=== PATIENT | female | born 1960 | race Caucasian/White ===

== ENCOUNTER 2022-11-30 15:30 | Emergency (ER) | payer OTHER, SELFPAY ==
[2022-11-30 15:37] VITALS: BP 165/92; PULSE 56; RESP 16; TEMP 37.3; O2SAT 99
--- NOTE | 2022-11-30 15:39 | ED.EYEPROB ---
HPI - Eye Problem General Chief complaint: Eye Problems Stated complaint: Eye Problem Source: patient and RN notes reviewed History of Present Illness HPI Narrative: 62-year-old female presents to urgent care with complaints of a foreign body sensation to her left eye. States the symptoms started approximately 1 hour ago. Patient attempted washing her eye out at home and has been using Liquid Tears without relief. Denies any visual disturbance, fevers, chills, vomiting, or eye drainage. Related Data Home Medications Medication Instructions Recorded Confirmed lisinopril 40 mg tablet 40 mg PO DAILY 11/30/22 11/30/22 metoprolol succinate 25 mg 25 mg PO DAILY 11/30/22 11/30/22 tablet,extended release 24 hr omeprazole 20 mg tablet,delayed 20 mg PO BID 11/30/22 11/30/22 release ranolazine 1,000 mg 1,000 mg PO Q12H 11/30/22 11/30/22 tablet,extended release,12 hr sertraline 100 mg tablet 100 mg PO DAILY 11/30/22 11/30/22 Allergies Allergy/AdvReac Type Severity Reaction Status Date / Time Penicillins Allergy Unknown Rash Verified 11/30/22 15:51 [id number]-[id number]-[id number] Reductase Allergy Unknown Rash Verified 11/30/22 15:51 Inhibitor [Dzvfjvh-Whg-Ryv Reductase Inhibitor] Review of Systems Review of Systems: CONSTITUTIONAL: Denies fever, chills, or sweats. EYES: Reports foreign body sensation in left eye ENT: Denies otalgia and sore throat CARDIOVASCULAR: Denies chest pain, palpitations, or edema. RESPIRATORY: Denies cough or dyspnea. GASTROINTESTINAL: Denies abdominal pain, nausea, vomiting, or diarrhea. GENITOURINARY: Denies dysuria or hematuria. SKIN: Denies rash or itching. MUSCULOSKELETAL: Denies back pain, joint pain, or myalgia. NEUROLOGIC: Denies headache, numbness, or weakness. PMFSH Social History Social History Smoking status: Never smoker Alcohol intake: current Comments At the time of my signature, I reviewed and agree with the nursing past medical, surgical, social, and family history. There is no relevant family history pertinent to the patient complaint. Exam Narrative: GENERAL: This is a well-nourished, well-developed patient, in no apparent distress. HEAD: normocephalic, atraumatic. EYES: PERRL. Sclera clear/white. Vision is grossly intact. With sleep exam demonstrates no foreign body or corneal abrasion. Small chemosis noted to the 3 o'clock position of the left eye. EARS: External ears normal, auditory canals clear and without drainage, TMs normal without perforation. Hearing grossly intact. NOSE: External nose normal with no obvious nasal discharge, nares without redness, no rhinorrhea. THROAT: Mucous membranes moist, posterior pharynx clear. NECK: Neck supple, non-tender without lymphadenopathy, masses or thyromegaly. CARDIOVASCULAR: Regular rate and rhythm without murmurs, gallops, or rubs. RESPIRATORY: Clear to auscultation. Breath sounds equal bilaterally. No wheezes, rales, or rhonchi. GASTROINTESTINAL: Abdomen soft, non-tender, nondistended. Bowel sounds are active. No hepato-splenomegaly, or palpable masses. No guarding. SKIN: warm, intact with no suspicious lesions or rash, good texture and turgor. NEURO: awake, alert, and oriented to person, place and time. There were no obvious focal neurologic abnormalities. Course Course Level of Care: Express Care Visit Vital Signs Vital signs: Vital Signs Temperature 99.1 F 11/30/22 15:37 Pulse Rate 56 L 11/30/22 15:37 Respiratory Rate 16 11/30/22 15:37 Blood Pressure 165/92 H 11/30/22 15:37 Pulse Oximetry 99 11/30/22 15:37 Oxygen Delivery Room Air 11/30/22 15:37 Temperature 99.1 F 11/30/22 15:54 Pulse Rate 56 L 11/30/22 15:54 Respiratory Rate 16 11/30/22 15:54 Blood Pressure 165/92 H 11/30/22 15:54 Pulse Oximetry 99 11/30/22 15:54 Oxygen Delivery Room Air 11/30/22 15:54 Reviewed MDM - Eye Problem MDM Narrative Medical decision making narrative: Chemosis is?swelling of the
[2022-11-30 15:54] VITALS: BP 165/92; PULSE 56; RESP 16; TEMP 37.3; O2SAT 99
== END 2022-11-30 16:12 | disposition home or self-care (01) ==
PROVIDERS: Emergency Provider Nurse Practitioner Family
DX: H11.422 Conjunctival edema, left eye (principal); I10 Essential (primary) hypertension; K21.9 Gastro-esophageal reflux disease without esophagitis; F41.9 Anxiety disorder, unspecified
CPT/HCPCS: 99203; A9270; G0463